=== PATIENT | female | born 1975 | race Caucasian/White ===

== ENCOUNTER → 2019-09-09 | Outpatient (CLI) | payer MEDICAID ==
[~2019-09-09] MED LIST: ADVIL200 MG PO; ALEVE 220MG220 MG PO; ALLEGRA 180MG180 MG PO; SUDAFED 24 HOU240 MG PO
[2019-09-09 17:13] LABS: HEMATOCRIT 38.3 % (37.0-47.0); HEMOGLOBIN 12.7 g/dl (12.5-16.0); MEAN CELL VOLUME 92 fl (80.0-100.0); MEAN CORPUSCULAR HEMOGLOBIN 30 pg (27.0-31.0); MEAN CORPUSCULAR HGB CONC 33 g/dl (33.0-37.0); MEAN PLATELET VOLUME 10.9 fl (7.4-10.4); PLATELET COUNT 236 K/mm3 (130-400); RED BLOOD COUNT 4.18 M/mm3 (4.10-5.30); REDCELL DISTRIBUTION WIDTH-CV 13.1 % (11.5-14.5)
[2019-09-09 17:31] LABS: CALCIUM 8.8 mg/dL (8.4-10.2); CREATININE, serum 0.69 (0.52-1.25); POTASSIUM 4.1 mmol/L (3.4-5.0)
== END ==
LOC: COL.LAB 16:49
PROVIDERS: Physician Assistant Medical
DX: M79.89 Other specified soft tissue disorders (principal)

== ENCOUNTER 2019-10-19 20:01 | Emergency (ER) | payer MEDICAID ==
[~2019-10-19] VITALS: Ht 165.1 cm; Wt 100.0 kg
[2019-10-19 20:05] VITALS: BP 170/98; TEMP 97.6
[2019-10-19] MEDS ORDERED: CEPHALEXIN500 M1 PO (21:17)
[2019-10-19] MEDS ORDERED: DIFLUCAN150 MG PO (21:17)
[2019-10-19 21:36] VITALS: PULSE 95
== END 2019-10-19 21:36 | disposition home or self-care (01) ==
LOC: COL.ER 20:01
DX: S91.202A Unspecified open wound of left great toe with damage to nail, initial encounter (principal); W22.8XXA Striking against or struck by other objects, initial encounter; Y92.009 Unspecified place in unspecified non-institutional (private) residence as the place of occurrence of the external cause

== ENCOUNTER 2020-03-17 08:50 | Emergency (ER) | payer MEDICAID ==
[~2020-03-17] VITALS: Ht 165.1 cm; Wt 104.5 kg
[~2020-03-17 08:50] MED LIST changes: +CEPHALEXIN500 M1 PO; +DIFLUCAN150 MG PO
[2020-03-17 08:55] VITALS: TEMP 97
[2020-03-17 09:26] LABS: BASO % 0.3 % (0.0-2.0); EOS # 0.1 (0.0-0.7); EOS % 0.7 % (0-4.0); GRAN # 9.3 (1.4-6.5); GRAN % 75.8 % (42.2-75.2); HEMATOCRIT 40.8 % (37.0-47.0); HEMOGLOBIN 13.6 g/dl (12.5-16.0); LYMPH # 1.9 (1.2-3.4); LYMPH % 15.3 % (20.0-51.0); MEAN CELL VOLUME 90 fl (80.0-100.0); MEAN CORPUSCULAR HEMOGLOBIN 30 pg (27.0-31.0); MEAN CORPUSCULAR HGB CONC 33 g/dl (33.0-37.0); MONO # 0.9 (0.1-0.6); MONO % 7.6 % (1.7-9.3); PLATELET COUNT 234 K/mm3 (130-400); RED BLOOD COUNT 4.55 M/mm3 (4.10-5.30); REDCELL DISTRIBUTION WIDTH-CV 12.9 % (11.5-14.5)
[2020-03-17 09:28] LABS: ALANINE AMINOTRANSFERASE 25 U/L (4-34); ALBUMIN 4.4 gm/dL (3.5-5.0); ALKALINE PHOSPHATASE 107 U/L (50-136); ANION GAP 11 mmol/L (7-16); AST,SGOT 35 U/L (15-37); BILIRUBIN,TOTAL 0.5 mg/dL (0.0-1.0); BLOOD UREA NITROGEN 14 mg/dL (7-17); CALCIUM 9.3 mg/dL (8.4-10.2); CARBON DIOXIDE 21 mmol/L (22-30); CHLORIDE 104 mmol/L (98-107); GLUCOSE 147 mg/dL (74-106); LIPASE 90 U/L (23-300); POTASSIUM 3.9 mmol/L (3.4-5.0); SODIUM 136 mmol/L (137-145); TOTAL PROTEIN 8.1 gm/dL (6.4-8.2)
[2020-03-17 09:38] LABS: PH 7 (5-8); SQUAMOUS EPITHELIAL 0-2 /hpf; URINE APPEARANCE Clear; URINE BACTERIA None Seen /hpf; URINE BILIRUBIN Negative (NEGATIVE); URINE BLOOD Negative (NEGATIVE); URINE COLOR Straw; URINE GLUCOSE 1+ (NEGATIVE); URINE KETONE 1+ (NEGATIVE); URINE LEUKOCYTE ESTERASE Negative (NEGATIVE); URINE NITRATE Negative (NEGATIVE); URINE PROTEIN(semi-quant) Negative (NEGATIVE); URINE RBC 0-2 /hpf; URINE UROBILINOGEN Negative (NEGATIVE); URINE WBC 0-2 /hpf
[2020-03-17 09:56] LABS: TROPONIN-I < 0.012 ng/mL (0.000-0.035)
[2020-03-17 10:17] LABS: COLLECTION METHOD CLEAN CATCH
[2020-03-17] MEDS ORDERED: TYLENOL 325MG325 MG PO (11:44)
[2020-03-17] MEDS ORDERED: MOTRIN 400400 MG/TAB PO (11:44)
[2020-03-17] MEDS ORDERED: FLOMAX 0.40.4 MG/CAP PO (11:44)
[2020-03-17] MEDS ORDERED: ZOFRAN ODT4 MG PO (11:46)
[2020-03-17 11:50] VITALS: BP 170/80; PULSE 71
== END 2020-03-17 12:15 | disposition home or self-care (01) ==
LOC: COL.ER 08:50
PROVIDERS: Emergency Medicine
DX: N20.0 Calculus of kidney (principal); Z88.0 Allergy status to penicillin; Z88.1 Allergy status to other antibiotic agents; Z88.6 Allergy status to analgesic agent
CPT/HCPCS: J1200; J1885; J2405; J2765; J7030; Q9967

== ENCOUNTER 2020-03-20 14:00 | Day surgery (SDC) | payer MEDICAID ==
[~2020-03-20] VITALS: Ht 165.1 cm; Wt 106.7 kg
[2020-03-20 12:23] VITALS: PULSE 90; TEMP 98.1
[~2020-03-20 14:00] MED LIST changes: +FLOMAX 0.40.4 MG/CAP PO; +MOTRIN 400400 MG/TAB PO; +TYLENOL 325MG325 MG PO; +ZOFRAN ODT4 MG PO
[2020-03-20 14:45] VITALS: BP 145/77; PULSE 77; TEMP 98
[2020-03-20 15:00] VITALS: BP 165/81; PULSE 77
--- NOTE | 2020-03-20 15:02 | NUR ---
PT RETURNED PER CART INTO BAY #6 FROM PACU. PT RATES BACK PAIN AT A 5 ON 0-10 SCALE. LUNGS CLEAR, HRR, BOWEL SOUNDS AUDIBLE. PT STATES, 'SLIGHLY NAUSEATED'. TOLERATING CRACKERS AND WATER AT THIS TIME. UP TO VOID WITH LIGHT PINK URINE NOTED. WILL CONT TO MONITOR.
[2020-03-20 15:15] VITALS: BP 179/80; PULSE 86
--- NOTE | 2020-03-20 15:27 | NUR ---
NOTIFIED DR RABAGO ABOUT PT BACK PAIN. DR RABAGO ORDERED MEDS TO BE GIVEN. PT REPOSITIONED HERSELF IN BED. PT TOLERATING WATER AND CRACKERS. WILL CONT TO MONITOR PROGRESS.
[2020-03-20 16:08] VITALS: BP 154/73; PULSE 79
--- NOTE | 2020-03-20 16:09 | NUR ---
PT RATING PAIN AT A 2 ON A 0-10 SCALE. TOLERATING FOOD AND FLUID WITHOUT DIFFICULTY. UP TO AMBULATE TO THE BATHROOM INDEPENDENTLY AND VOIDED WITHOUT DIFFICULTY.
--- NOTE | 2020-03-20 16:44 | NUR ---
PT DENIES PAIN, NAUSEA OR VOMITING AT DISMISSAL. DISMISSAL INSTRUCTIONS GIVEN, PT VOICES UNDERSTANDING. PT ADVISED TO TALK TO HER MEDICAL DR REGARDING HER INCREASE IN BLOOD PRESSURE. PT ADVISED BY DR RABAGO AND THIS NURSE TO CALL DR GAN REGARDING POSSIBLE OVARIAN CYSTS. PT DISCHARGED TO PT VEHICLE, DAUGHTER DRIVING.
== END 2020-03-20 16:20 | disposition home or self-care (01) ==
LOC: SDCO 14:00
DX: N13.2 Hydronephrosis with renal and ureteral calculous obstruction (principal); N83.202 Unspecified ovarian cyst, left side; K21.9 Gastro-esophageal reflux disease without esophagitis; F41.9 Anxiety disorder, unspecified; M17.0 Bilateral primary osteoarthritis of knee; M19.022 Primary osteoarthritis, left elbow; M19.021 Primary osteoarthritis, right elbow; Z88.6 Allergy status to analgesic agent; Z20.828 Contact with and (suspected) exposure to other viral communicable diseases; Z88.1 Allergy status to other antibiotic agents; Z88.5 Allergy status to narcotic agent; Z88.0 Allergy status to penicillin
CPT/HCPCS: C1769; J0690; J1100; J1885; J2175; J2405; J2704; J3010; J7120; Q9967

== ENCOUNTER 2020-12-12 08:54 | Day surgery (SDC) | payer MEDICAID ==
[~2020-12-12] VITALS: Ht 165.1 cm; Wt 91.7 kg
[2020-12-12] VITALS (9 sets, daily range): BP systolic 138–161; BP diastolic 66–90; PULSE 76–93; TEMP 98
[2020-12-12] MEDS ORDERED: ZOLOFT 100MG100 MG PO (10:06)
[2020-12-12] MEDS ORDERED: SINGULAIR 110 MG/TAB PO (10:07)
[2020-12-12 10:08] LABS: HEMATOCRIT 38.9 % (37.0-47.0); HEMOGLOBIN 13.1 g/dl (12.5-16.0); MEAN CELL VOLUME 89 fl (80.0-100.0); MEAN CORPUSCULAR HEMOGLOBIN 30 pg (27.0-31.0); MEAN CORPUSCULAR HGB CONC 34 g/dl (33.0-37.0); MEAN PLATELET VOLUME 10.8 fl (7.4-10.4); PLATELET COUNT 211 K/mm3 (130-400); RED BLOOD COUNT 4.36 M/mm3 (4.10-5.30)
[2020-12-12] MEDS ORDERED: ZYRTEC 10MG10 MG PO (10:08)
[2020-12-12] MEDS ORDERED: PROBIOTIC BLEN1 EACH PO (10:08)
[2020-12-12] MEDS ORDERED: SUDAFED 12 HOU120 MG PO (10:08)
[2020-12-12] MEDS ORDERED: GREEN COFFEE BEAN PO (10:09)
[2020-12-12] MEDS ORDERED: ONE-A-DAY ESSE1 EACH PO (10:11)
[2020-12-12] MEDS ORDERED: NITROSTAT0.4 MG/TAB SL (10:11)
[2020-12-12] MEDS ORDERED: TOPROL XL 25MG25 MG PO (10:12)
[2020-12-12 10:16] LABS: PROTHROMBIN TIME 11.6 SECONDS (9.7-12.8)
[2020-12-12 10:18] LABS: PARTIAL THROMBOPLASTIN TIME 30.3 SECONDS (26.0-37.0)
[2020-12-12 10:28] LABS: ALBUMIN 4.4 gm/dL (3.5-5.0); BILIRUBIN,TOTAL 0.4 mg/dL (0.0-1.0); CHOLESTEROL RISK RATIO 2.7; CREATININE, serum 0.7 (0.52-1.25); POTASSIUM 4.1 mmol/L (3.4-5.0); TOTAL PROTEIN 7.6 gm/dL (6.4-8.2)
[2020-12-12] MEDS ORDERED: ASPIRIN E.C. 8181 MG PO (10:58)
--- NOTE | 2020-12-12 17:52 | NUR ---
SEE MERGE DOCUMENTATION FOR MEDICATION ADMINISTRATION TIMES AND INTRA/POST PROCEDURE SEDATION ASSESSMENTS.
[2020-12-12] MEDS ORDERED: GNC L-ARGININE500 MG PO (18:19)
--- NOTE | 2020-12-12 18:30 | NUR ---
Pt is back from environmental laboratory technician. bs report from [facility]. Pt is in NSR rate 75, telemetry employed. TR band to rt wrist cms intact distal. dinner has been ordered. friend is at bs. call light in reach.
--- NOTE | 2020-12-12 20:24 | NUR ---
Pt is ready for departure. TR band has been deflated with no problem. site dressed with bandaid, folded 2x2 and coban. iv dc'd with cath intact, dressing applied. I have reviewed instructions with pt who verbalized understnading. to exit via wheelchair.
== END 2020-12-12 20:40 | disposition home or self-care (01) ==
LOC: COL.CAR 08:54
PROVIDERS: Internal Medicine Cardiovascular Disease
DX: I25.119 Atherosclerotic heart disease of native coronary artery with unspecified angina pectoris (principal); R94.39 Abnormal result of other cardiovascular function study; E66.9 Obesity, unspecified; J45.909 Unspecified asthma, uncomplicated; M17.0 Bilateral primary osteoarthritis of knee; F43.10 Post-traumatic stress disorder, unspecified; Z90.49 Acquired absence of other specified parts of digestive tract; Z98.51 Tubal ligation status; Z20.822 Contact with and (suspected) exposure to COVID-19; Z79.899 Other long term (current) drug therapy; Z68.39 Body mass index [BMI] 39.0-39.9, adult
CPT/HCPCS: C1769; J1644; J2250; J2405; J3010; Q9967

== ENCOUNTER 2021-05-30 20:46 | Emergency (ER) | payer MEDICAID ==
[~2021-05-30] VITALS: Ht 165.1 cm; Wt 90.9 kg
[~2021-05-30 20:46] MED LIST changes: +ASPIRIN E.C. 8181 MG PO; +GNC L-ARGININE500 MG PO; +GREEN COFFEE BEAN PO; +NITROSTAT0.4 MG/TAB SL; +ONE-A-DAY ESSE1 EACH PO; +PROBIOTIC BLEN1 EACH PO; +SINGULAIR 110 MG/TAB PO; +SUDAFED 12 HOU120 MG PO; +TOPROL XL 25MG25 MG PO; +ZOLOFT 100MG100 MG PO; +ZYRTEC 10MG10 MG PO
[2021-05-30 20:55] VITALS: TEMP 98.4
[2021-05-30 21:35] LABS: BASO # 0.1 K/mm3 (0.0-0.2); BASO % 0.7 % (0.0-2.0); EOS # 0.5 K/mm3 (0.0-0.7); EOS % 6.7 % (0.0-4.0); GRAN # 4.2 K/mm3 (1.4-6.5); GRAN % 55.7 % (42.2-75.2); HEMOGLOBIN 12.7 g/dl (12.5-16.0); LYMPH # 1.9 K/mm3 (1.2-3.4); LYMPH % 25.4 % (20.0-51.0); MEAN CELL VOLUME 89 fl (80.0-100.0); MEAN CORPUSCULAR HEMOGLOBIN 30 pg (27-31); MEAN CORPUSCULAR HGB CONC 33 g/dl (33.0-37.0); MEAN PLATELET VOLUME 10.5 fl (7.4-10.4); MONO # 0.8 K/mm3 (0.1-0.6); MONO % 11.2 % (1.7-9.3); PLATELET COUNT 247 K/mm3 (130-400); RED BLOOD COUNT 4.28 M/mm3 (4.10-5.30); REDCELL DISTRIBUTION WIDTH-CV 13.5 % (11.5-14.5)
[2021-05-30 21:46] LABS: ALANINE AMINOTRANSFERASE 22 U/L (0-55); ALBUMIN 3.9 gm/dL (3.5-5.0); ALKALINE PHOSPHATASE 86 U/L (40-150); ANION GAP 10 mmol/L (7-16); AST,SGOT 17 U/L (5-34); BILIRUBIN,TOTAL 0.2 mg/dL (0.2-1.2); BLOOD UREA NITROGEN 19 mg/dL (7-19); C-REACTIVE PROTEIN 0.55 mg/dL (0.00-0.50); CALCIUM 8.8 mg/dL (8.4-10.2); CARBON DIOXIDE 23 mmol/L (22-29); CHLORIDE 107 mmol/L (98-107); CREATININE, serum 0.74 mg/dL (0.57-1.11); GLUCOSE 117 mg/dL (70-99); SODIUM 140 mmol/L (136-145); TOTAL PROTEIN 7.2 gm/dL (6.2-8.1)
[2021-05-30 21:52] LABS: TROPONIN-I < 0.010 ng/mL (0.00-0.033)
[2021-05-30 23:06] VITALS: BP 143/74; PULSE 78
== END 2021-05-30 23:05 | disposition home or self-care (01) ==
LOC: COL.ER 20:46
PROVIDERS: Nurse Practitioner
DX: R06.02 Shortness of breath (principal)
CPT/HCPCS: J2060; Q9967

== ENCOUNTER 2022-01-02 13:30 | Outpatient (RCR) | payer MEDICAID | END 2022-01-20 | disposition home or self-care (01) | LOC: WSPT | DX: M17.0 Bilateral primary osteoarthritis of knee (principal) ==

== ENCOUNTER → 2022-01-20 | Outpatient (RCR) | payer MEDICAID | END | disposition home or self-care (01) | LOC: WSPT | DX: M25.562 Pain in left knee (principal); Z96.652 Presence of left artificial knee joint ==